=== PATIENT | male | born 1980 | race Caucasian/White ===

== ENCOUNTER → 2020-02-06 08:25 | Outpatient (BNVA) | payer MEDICARE, SELFPAY | PROVIDERS: Family Provider Nurse Practitioner Family; PCP Family Medicine; Visit Provider Nurse Practitioner | DX: F31.81 Bipolar II disorder (principal) | CPT/HCPCS: 99213 ==

== ENCOUNTER → 2020-08-03 08:09 | Outpatient (BNVA) | payer MEDICARE, SELFPAY | PROVIDERS: Family Provider Nurse Practitioner Family; PCP Family Medicine; Visit Provider Nurse Practitioner | DX: F31.81 Bipolar II disorder (principal) | CPT/HCPCS: 99214 ==

== ENCOUNTER → 2020-11-30 09:05 | Outpatient (BNVA) | payer MEDICARE, SELFPAY | PROVIDERS: Family Provider Nurse Practitioner Family; PCP Family Medicine; Visit Provider Nurse Practitioner | DX: F31.81 Bipolar II disorder (principal) | CPT/HCPCS: 99214 ==

== ENCOUNTER → 2021-03-22 15:16 | Outpatient (BNVA) | payer MEDICARE, SELFPAY | PROVIDERS: Family Provider Nurse Practitioner Family; PCP Family Medicine; Visit Provider Nurse Practitioner | DX: F31.81 Bipolar II disorder (principal) | CPT/HCPCS: 99214 ==

== ENCOUNTER → 2021-06-18 07:53 | Outpatient (BNVA) | payer MEDICARE, SELFPAY | PROVIDERS: Family Provider Nurse Practitioner Family; PCP Family Medicine; Visit Provider Nurse Practitioner | DX: F31.81 Bipolar II disorder (principal) | CPT/HCPCS: 99214 ==

== ENCOUNTER 2021-09-04 15:04 | Outpatient (CLI) | payer MEDICARE, SELFPAY ==
--- NOTE | 2021-09-04 15:00 | XR_ITS ---
WS: [id number] KUB, AP view, 09/04/2021 Clinical Data: KIDNEY STONE Comparison: KUB, 06/02/2019. Findings: There are bilateral renal calcifications which have increased in size and number in the last 2 years. The bladder is full, but no pelvic calcifications are seen. There is fecal material in the ascending and transverse colons. XR/XR KUB [id number] Impression: Increasing bilateral renal calcifications.
== END 2021-09-04 15:05 | disposition home or self-care (01) ==
LOC: RAD 15:08
PROVIDERS: PCP Family Medicine; Visit Provider Urology
DX: N20.0 Calculus of kidney (principal); Z20.822 Contact with and (suspected) exposure to COVID-19
CPT/HCPCS: 74018; 81003; 87635

== ENCOUNTER 2021-09-09 12:14 | Day surgery (SDC) | payer MEDICARE, SELFPAY ==
[2021-09-06 11:10] VITALS: BMI 31.4
--- NOTE | 2021-09-09 12:24 | XRR_ITS ---
PROCEDURE INFORMATION: Exam: XR Abdomen Exam date and time: 09/09/2021 12:24 PM Age: 41 years old Clinical indication: Screening exam; Other: Eswl preop; Prior surgery; Surgery type: Appy, hernia; Additional info: Preop left eswl TECHNIQUE: Imaging protocol: XR of the abdomen. Views: Frontal supine view of the abdomen. 1 View. COMPARISON: CR XR KUB [id number] 09/04/2021 3:33 PM FINDINGS: Gastrointestinal tract: Normal. No bowel dilation. Bones/joints: Osteoarthritis with sclerosis and joint space narrowing lumbar spine L4-L5 intervertebral disc space level. Multiple of calcified caliceal renal stones are seen. The largest are in the mid and lower pole of the left kidney measuring 17 mm x 15 mm, and 15 mm x 24 mm respectively. There is multiple smaller stones seen in the upper and lower pole collecting system of the left kidney. The right kidney shows multiple small stones in the upper mid and lower pole collecting system. The largest of the stones measures 7.7 mm. Review of prior examination showed a large stone in the central collecting system of the left kidney which is now been fragmented. XR/XR KUB [id number] IMPRESSION: 1. There are large caliceal stones in the lower pole collecting system of the left kidney. 2. Multiple small caliceal stones throughout the right renal collecting system. 3. Otherwise negative examination Radiation Dose CTDIVOL = (mGy): DLP = (mGy-cm)
[2021-09-09 13:02] VITALS: BP 138/98; PULSE 86; RESP 18; TEMP 36.6; O2SAT 97
[2021-09-09] MEDS: sodium chloride 0.9% 1,000 ML 30 ML IV (13:15)
--- NOTE | 2021-09-09 13:16 | P.HPUD_ITS ---
Surgery/Procedure H&P Update DATE OF PROCEDURE: September 09, 2021 DATE H&P PERFORMED: 09/04/21 H&P UPDATE INFORMATION: I have reviewed H&P completed within last 30 days, I have examined patient prior to procedure, No changes to prior documentation and H&P is in [facility] [place] [facility] EMR on date indicated PREOP DIAGNOSIS: Large Left renal stones x 2 PLANNED PROCEDURE: Operation Date: 09/09/21 13:30 Proposed Procedures p Cystoscopy 77442 40453 N20.0(Not Applicable) - Alex Batista MD s Ureteral Stent Placement(Left) - Alex Batista MD s ESWL(Not Applicable) - Alex Batista MD
--- NOTE | 2021-09-09 13:23 | ANES.PREANE2 ---
Pre-Anesthetic Assessment Pre-Anesthetic Assessment: Height/Weight: Height 1.88 m Weight 111.13 kg Temp Pulse Resp BP Pulse Ox 97.8 F 86 18 138/98 97 09/09/21 13:02 09/09/21 13:02 09/09/21 13:02 09/09/21 13:02 09/09/21 13:02 Preop Diagnosis: Large Left renal stones x 2 Proposed Procedure: Operation Date: 09/09/21 13:30 Proposed Procedures p Cystoscopy 81429 01631 N20.0(Not Applicable) - Alex Batista MD s Ureteral Stent Placement(Left) - Alex Batista MD s ESWL(Not Applicable) - Alex Batista MD Familial anesthetic complications: NOne Was Beta Abram taken within 24 hours: N/A Was Clonidine taken within 24 hours: N/A Last intake: Intake Last Liquid Date 09/09/21 Last Liquid Time 06:00 Last Solid Date 09/07/21 Last Solid Time 10:00 Social: Social History: Tobacco and No alcohol Exam: Pre-Anes Outpt Exam: alert, oriented x 3, clear to auscultation bilaterally and regular rate & rhythm Airway: Cervical ROM: WNL MP: 3 Dentition: Other (crowns) Pulmonary: Pulmonary: Sleep apnea CV/HEM: CV/HEM: HTN Comments: loop recorder still in place from several years ago - no issues found per patient GI: GI: GERD Neuropsych: Neuropsych: Bipolar Anesthetic Plan: ASA status: 3 Anesthesia: General Risk of > 500 ml blood loss (7ml/kg in children): No PFSH Anesthesia PFSH: Medical History (Updated 09/05/21 @ 07:07 by Alex Batista MD) Bipolar II disorder Fracture of ulnar shaft, closed S/P extracorporeal shock wave therapy Urolithiasis Surgical History (Updated 09/05/21 @ 07:07 by Alex Batista MD) History of back surgery History of inguinal hernia repair History of loop recorder Hx of appendectomy S/P ureteral stent placement Family History Father Heart attack Social History Smoking and tobacco status: current some day smoker Alcohol intake: current Alcohol intake frequency: holidays/special occasions only Marital status: Single Current occupational status: disabled History of recent travel: No Data Anesthesia Cardiac Studies: No Data to Display
[2021-09-09] MEDS: levofloxacin-dextrose 5 % 500 MG/100 ML PREMIX 100 MG IV (13:30)
--- NOTE | 2021-09-09 14:51 | P.OP_ITS ---
Operative Report Date of procedure: September 09, 2021 Pre-op Diagnosis: Large Left renal stones x 2 Post-op diagnosis: same Procedure Done: 1. Cystoscopy with left ureteral stent placement (7 Liberian by 30 cm double- pigtail without string) 2. Extracorporeal shockwave lithotripsy to the large UPJ stone. The other stone in the renal pelvis/lower pole was not treated. Implants: Left ureteral stent Specimens removed/disposition: None Pathology: None Surgeon: Lester Cash Posting Representative: Remedios Anesthesia: General Estimated blood loss: None Urine output: Not measured Complications: None Findings: Stent placed without difficulty. The larger more distal stone was treated with 2500 shocks with good change. The additional large stone was not treated. Condition: stable Disposition: PACU Brief History: Dionicio is a 41-year-old white male with a complex history of stone disease r equiring multiple procedures over the years. Recently presented after a long absence with 2 large stones on the left side with the more distal stone engaged at the UPJ and the more proximal stone in the lower pole and renal pelvis [id number]. On that same day he spontaneously passed 2 ureteral calculi. In the past his stones have broken up well with ESWL and is admitted now for initial treatment most likely just 1 stone given the size and density. Procedure: After routine preoperative evaluation examination and obtaining of informed consent he was taken to the operating suite on 09/09/2021 where general anesthesia was administered without difficulty after appropriate timeout was performed, SCDs confirmed to be functioning, preoperative antibiotics administered, beta-saravanan protocol confirmed. Position on the Dornier unit in dorsolithotomy position with the shock head initially positioned posteriorly. Careful attention was paid to avoiding pressure points. Prepped and draped in usual sterile fashion. 21 Liberian cystoscope with 30 degree lens was introduced into the urethral meatus and advanced into the bladder under videoscopy. Flexible tip guidewire was easily advanced up the left ureter bypassing the stone and the stone was pushed into the renal pelvis slightly. A 7 Liberian by 30 cm double-pigtail stent was advanced over the guidewire through the cystoscope into appropriate position as confirmed via fluoroscopy and cystoscopy. The bladder was drained and the cystoscopic portion of the procedure was completed. He was then positioned in supine position with the shock head position posteriorly in the UPJ stone was focused upon. A total of 2500 shocks was administered to the stone with good change. The second stone was not treated at all directly based on the size of the stone and requirement for fragmentation of the treated stone. He was awakened in the operating room and returned to the recovery room in stable condition. PLANS: 1. Anticipate discharge from outpatient surgery today with follow-up in approximately 2 weeks with KUB. It is very likely that he will require more treatment to even the stone but certainly full treatment to the additional untreated stone.
[2021-09-09 14:59] VITALS: BP 146/97; PULSE 85; RESP 16; TEMP 36.5; O2SAT 98
[2021-09-09 15:00] VITALS: BP 152/97; PULSE 94; RESP 25; O2SAT 100
[2021-09-09 15:05] VITALS: BP 149/106; PULSE 80; RESP 17; O2SAT 100
--- NOTE | 2021-09-09 15:05 | ANE.PACU2 ---
Inpatient post-anesthesia follow up: Airway intact: Yes Vital signs: Temperature 97.8 F Pulse Rate 86 Respiratory Rate 18 Blood Pressure 138/98 Pulse Oximetry 97 Oxygen Delivery Me thod Room Air Oxygen Flow Rate Fraction of Inspir ed Oxygen Hydration adequate: Yes Nausea and vomiting: No Pain level: 1 Mental status: Baseline
[2021-09-09 15:12] VITALS: BP 135/96; PULSE 79; RESP 17; TEMP 36.5; O2SAT 96
[2021-09-09 15:27] VITALS: BP 145/91; PULSE 88; RESP 18; TEMP 36.6; O2SAT 96
[2021-09-09] MEDS: oxyCODONE-APAP 5-325 mg Tablet 1 TAB PO (15:46)
== END 2021-09-09 16:15 | disposition home or self-care (01) ==
PROVIDERS: PCP Family Medicine; Visit Provider Urology
PROC: 0TJB8ZZ Inspection of Bladder, Via Natural or Artificial Opening Endoscopic (ICD-10-PCS; CPT 52000; principal; 2021-09-09 13:20)
PROC: (CPT 50605; 2021-09-09 13:20)
PROC: (CPT 50590; 2021-09-09 13:20)
DX: N20.1 Calculus of ureter (principal); N20.9 Urinary calculus, unspecified; Z90.89 Acquired absence of other organs
CPT/HCPCS: 50590; 52332; 74018; C2625; J1100; J1956; J2405; J2704; J3010; J3490; J7030

== ENCOUNTER 2021-09-17 07:03 | Outpatient (CLI) | payer MEDICARE, SELFPAY ==
--- NOTE | 2021-09-17 07:00 | XR_ITS ---
WS: [id number] Exam: XR KUB [id number] Date/Time of Exam: 09/17/2021 7:17 AM Reason For Exam: UROLITHIASIS Comparison 09/09/2021. A left-sided ureteral stent catheter is in place in satisfactory location. There are numerous calcifi cations identified along the upper course of the catheter apparently representing ureteral stones. Th ere are also multiple stones superimposing both renal silhouettes. No bowel obstruction or free air. No sign of organ enlargement. Degenerative change of the lower lumbar spine. XR/XR KUB [id number] IMPRESSION: 1. Left-sided ureteral stent catheter in satisfactory location. There are numer ous calcifications noted along the superior extent of the catheter apparently r epresenting multiple ureteral stones. Additional stones superimpose both kidney s.
== END 2021-09-17 07:04 | disposition home or self-care (01) ==
LOC: RAD 07:04
PROVIDERS: PCP Family Medicine; Visit Provider Urology
DX: N20.9 Urinary calculus, unspecified (principal); Z20.822 Contact with and (suspected) exposure to COVID-19; Z96.0 Presence of urogenital implants
CPT/HCPCS: 74018; 81003; 87635

== ENCOUNTER 2021-09-23 10:34 | Day surgery (SDC) | payer MEDICARE, SELFPAY ==
[2021-09-20 17:39] VITALS: BMI 30.8
--- NOTE | 2021-09-23 10:39 | XR_ITS ---
WS: [id number] ABDOMEN 1 VIEW(S) HISTORY: Preop left ESWL COMPARISON: 09/17/2021 Normal bowel gas pattern. Double pigtail LEFT ureteral stent remains in good position. There are numerous calcifications noted along the course of the LEFT ureteral stent. The largest burden measures 4.6 cm in length and is late ral to the L3 and L4 vertebral bodies. There are additional smaller calcifications in the mid to dist al LEFT ureter. Moderate calcific burden remaining within the LEFT renal pelvis. There are numerous calcifications in the mid to lower RIGHT renal pelvis. No ureteral calcifications on the RIGHT. No bone abnormality. XR/XR KUB [id number] IMPRESSION: 1. Status post LEFT double pigtail ureteral stent insertion. 2. There is extensive calcific burden within the LEFT renal pelvis and along t he course of the LEFT renal stent as above.
[2021-09-23 11:25] VITALS: BP 138/105; PULSE 91; RESP 18; TEMP 36.4; O2SAT 95
[2021-09-23] MEDS: sodium chloride 0.9% 1,000 ML 30 ML IV (11:40)
--- NOTE | 2021-09-23 11:43 | ANES.PREANE2 ---
Pre-Anesthetic Assessment Pre-Anesthetic Assessment: Height/Weight: Height 1.88 m Weight 108.862 kg Temp Pulse Resp BP Pulse Ox 97.6 F 91 18 138/105 95 09/23/21 11:25 09/23/21 11:25 09/23/21 11:25 09/23/21 11:25 09/23/21 11:25 Preop Diagnosis: Residual left renal/ureteral calculi Proposed Procedure: Operation Date: 09/23/21 12:00 Proposed Procedures p ESWL, cystoscopy, stent 18212 N20.9(Left) - Alex Batista MD Was Beta Abram taken within 24 hours: Yes Last intake: Intake Last Liquid Date 09/21/21 Last Liquid Time 23:30 Last Solid Date 09/21/21 Last Solid Time 12:00 Social: Social History: Alcohol and Tobacco Comment: smokes cigs occas Exam: Pre-Anes Outpt Exam: alert, oriented x 3, clear to auscultation bilaterally and regular rate & rhythm Airway: Submandibular: WNL Cervical ROM: WNL MP: 2 Dentition: Full History/ROS: No significant history except as noted and No significant complaints Pulmonary: Pulmonary: None reported CV/HEM: CV/HEM: HTN Comments: Hx SVT. none in last 2 years : Comments: Hx stones Hepatic: Hepatic: None reported GI: GI: None reported Metabolic: Metabolic: None reported Musc/skel: Musc/skel: None reported Neuropsych: Neuropsych: None reported Anesthetic Plan: ASA status: 2 Anesthesia: Anesthesia Evaluation and General Risk of > 500 ml blood loss (7ml/kg in children): No PFSH Anesthesia PFSH: Medical History Bipolar II disorder Fracture of ulnar shaft, closed S/P extracorporeal shock wave therapy Urolithiasis Surgical History History of back surgery History of inguinal hernia repair History of loop recorder Hx of appendectomy S/P ureteral stent placement Family History Father Heart attack Social History Alcohol intake: current Alcohol intake frequency: holidays/special occasions only Marital status: Single Current occupational status: disabled History of recent travel: No Data Anesthesia Cardiac Studies: No Data to Display
--- NOTE | 2021-09-23 12:02 | P.OP_ITS ---
Operative Report Date of procedure: September 23, 2021 Pre-op Diagnosis: Residual left renal/ureteral calculi Post-op diagnosis: same Procedure Done: LEFT: Extracorporeal shockwave lithotripsy ureteral and renal calculi Pathology: none sent Surgeon: Lester Integration Developer: Remedios lithotripsy sterilization technician Anesthesia: General Urine output: Not measured Complications: None Findings: 2 distinct areas of stones along the stent: Sacral and proximal ureter. Total of 3000 shocks administered to these 2 areas divided roughly evenly LLP and 1 moderate-sized fragment treated in the kidney (2500 shocks) Good change on all treated stones. Condition: stable Disposition: PACU Brief History: Dionicio is a very pleasant 41-year-old white male with a prolific stone formation history and recently discovered after a prolonged absence to have 2 very large stones in the left collecting system. We reviewed percutaneous approaches versus endoscopic approaches from retrograde perspective versus ESWL and he chose ESWL given his prior history of good response. He is undergone 1 treatment so far with significant fragmentation of the larger UPJ stone and partial fragmentation of the more proximal stone. The proximal stone was not fully targeted but apparently was in the shockwave path enough to create breaking of the lower portion of the stone. He has a lot of fragments in the left proximal ureteral clearly too large to pass and elected retreatment. Preop KUB today showed some of the fragments had moved down into the distal ureter over the sacrum and he had some substantial fragments still remaining in the proximal ureter. Plan was to treat the ureteral stones first and if shockwave volume was still available then start working on the renal side. Procedure: After routine preoperative evaluation examination and obtaining of informed consent he was taken to the operating suite on 09/23/2021 where general anesthesia was administered without difficulty after appropriate timeout was performed, SCDs confirmed to be functioning, preoperative antibiotics administered, beta-saravanan protocol confirmed. Positioned on the Dornier unit in supine position paying careful attention to avoiding pressure points. Initial therapy was planned for the more distal collection of ureteral stones along the stent. Shock head was positioned anteriorly and these were brought into focus. A total of approximately 1500 shocks were administered to this string of stones over the sacrum with good change of all. The shock head was then repositioned such that the focal point was located on the proximal ureter below the edge of the kidney and the string of stones some of them approximately 12 to 15 mm in size were treated with an additional 1500 shocks with good change in all. Focus was then redirected to the second largest fragment in the left lower pole area and then directed to a cluster of stone fragments in the left lower pole below the larger remaining fragment. A total of 2500 shocks were administered to the renal stones. Tolerated the procedure well without complication. Good change was noted to all areas treated. Awakened in the operating room and returned to the recovery room in stable condition. PLANS: 1. Anticipate discharge from outpatient surgery 2. Follow-up in approximately 2 weeks with KUB first.
--- NOTE | 2021-09-23 12:02 | W.PM.OPSUD ---
Surgery/Procedure H&P Update DATE OF PROCEDURE: September 23, 2021 DATE H&P PERFORMED: 09/17/21 H&P UPDATE INFORMATION: I have reviewed H&P completed within last 30 days, I have examined patient prior to procedure, No changes to prior documentation and H&P is in [facility] [place] EMR on date indicated PREOP DIAGNOSIS: Residual left renal/ureteral calculi PLANNED PROCEDURE: Operation Date: 09/23/21 12:00 Proposed Procedures p ESWL, cystoscopy, stent 46908 N20.9(Left) - Alex Batista MD
[2021-09-23] MEDS: levofloxacin-dextrose 5 % 500 MG/100 ML PREMIX 100 MG IV (12:06)
[2021-09-23 14:24] VITALS: BP 156/127; PULSE 96; RESP 18; TEMP 36.3; O2SAT 96
[2021-09-23 14:25] VITALS: BP 163/111; PULSE 100; RESP 22; O2SAT 99
[2021-09-23 14:30] VITALS: BP 165/115; PULSE 70; RESP 24; O2SAT 100
[2021-09-23 14:34] VITALS: BP 147/101; PULSE 70; RESP 20; O2SAT 100
[2021-09-23 14:35] VITALS: BP 145/100; PULSE 78; RESP 17; O2SAT 96
--- NOTE | 2021-09-23 14:55 | ANE.PACU2 ---
Inpatient post-anesthesia follow up: Airway intact: Yes Vital signs: Temperature 97.4 F Pulse Rate 78 Respiratory Rate 17 Blood Pressure 145/100 Pulse Oximetry 96 Oxygen Delivery Me thod Room Air Oxygen Flow Rate 8 Fraction of Inspir ed Oxygen Hydration adequate: Yes Nausea and vomiting: No Pain level: 2 Mental status: Baseline
[2021-09-23] MEDS: ondansetron 2 mg/ML SDV 2 mL 4 MG IVP (15:13)
[2021-09-23] MEDS: oxyCODONE-APAP 5-325 mg Tablet 1 TAB PO (15:30)
== END 2021-09-23 15:40 | disposition home or self-care (01) ==
PROVIDERS: PCP Family Medicine; Visit Provider Urology
PROC: (CPT 50590; principal; 2021-09-23 12:00)
DX: N20.9 Urinary calculus, unspecified (principal); N20.0 Calculus of kidney; Z90.89 Acquired absence of other organs
CPT/HCPCS: 50590; 74018; J1100; J1956; J2405; J2704; J2710; J3010; J3490; J7030

== ENCOUNTER 2021-10-11 08:14 | Outpatient (CLI) | payer MEDICARE, SELFPAY ==
--- NOTE | 2021-10-11 08:00 | XR_ITS ---
WS: [id number] Exam: XR KUB [id number] Date/Time of Exam: 10/11/2021 8:00 AM Reason For Exam: UROLITHIASIS Comparison 09/23/2021. A left-sided ureteral catheter is in place appearing be in satisfactory position. There are numerous stone fragments adjacent to the lower end of the catheter in the distal ureter. A very large stone is adjacent to the catheter in the region of the left renal pelvis. This measures slightly less than 2 cm at greatest dimension. Additional small stones are noted in the left kidney as well as the right k idney. No bowel obstruction or free air. No sign of organ enlargement. Degenerative change at the L4- 5 level. XR/XR KUB [id number] IMPRESSION: 1. Numerous tiny stone fragments identified along the lower end of an indwellin g left ureteral catheter apparently within the distal left ureter. There is als o a large stone adjacent to the catheter in the expected region of the left nelson al pelvis. This measures almost 2 cm at greatest dimension. 2. There are additional stones in both kidneys.
== END 2021-10-11 08:15 | disposition home or self-care (01) ==
LOC: RAD 08:16
PROVIDERS: PCP Family Medicine; Visit Provider Urology
DX: N20.0 Calculus of kidney (principal)
CPT/HCPCS: 74018; 81003

== ENCOUNTER → 2021-10-17 13:22 | Outpatient (BNVA) | payer MEDICARE, SELFPAY | PROVIDERS: PCP Family Medicine; Visit Provider Nurse Practitioner Family | DX: N20.9 Urinary calculus, unspecified (principal) | CPT/HCPCS: 87635 ==

== ENCOUNTER → 2021-10-18 13:29 | Outpatient (BNVA) | payer MEDICARE, SELFPAY | PROVIDERS: PCP Family Medicine; Visit Provider Nurse Practitioner | DX: F31.81 Bipolar II disorder (principal) | CPT/HCPCS: 99214 ==

== ENCOUNTER 2021-10-21 10:42 | Day surgery (SDC) | payer MEDICARE, SELFPAY ==
[2021-10-18 13:52] VITALS: BMI 31.3
[2021-10-21] VITALS (11 sets, daily range): BP systolic 144–170; BP diastolic 98–113; PULSE 62–89; RESP 11–23; TEMP 36.2–36.4; O2SAT 96–100
--- NOTE | 2021-10-21 10:44 | XR_ITS ---
WS: [id number] Exam: XR KUB [id number] Date/Time of Exam: 10/21/2021 10:47 AM Reason For Exam: Preop left ESWL Comparison 10/11/2021. A left-sided ureteral stent is noted and appears to be in satisfactory position. A 2 cm calcification is seen along the proximal lateral margin of the stent and probably represents a large stone near th e ureteropelvic junction or in the upper ureter. There are additional calcifications seen along the i nferior course of the catheter near the region of the distal ureter and likely represent retained ure teral stones. Numerous calcifications are also noted in both kidneys representing known multiple cassie l calculi. No bowel obstruction or free air. No sign of organ enlargement. Degenerative and postopera tive changes of the lower lumbar spine. XR/XR KUB [id number] IMPRESSION: 1. Calcifications seen along the distal left ureteral catheter apparently repre senting a retained stones in the distal left ureter. 2. Large 2 cm calcification seen along the proximal aspect of the ureteral cath eter on the left and probably represents a large stone near the ureteropelvic j unction. 3. Multiple calcifications superimpose the kidneys and apparently represent mul tiple known renal calculi.
[2021-10-21] MEDS: sodium chloride 0.9% 1,000 ML 30 ML IV (11:40)
--- NOTE | 2021-10-21 12:14 | P.HPUD_ITS ---
Surgery/Procedure H&P Update DATE OF PROCEDURE: October 21, 2021 DATE H&P PERFORMED: 10/11/21 H&P UPDATE INFORMATION: I have reviewed H&P completed within last 30 days, I have examined patient prior to procedure, No changes to prior documentation and H&P is in [facility] [place] EMR on date indicated PREOP DIAGNOSIS: Residual left ureteral and renal calculi PLANNED PROCEDURE: Operation Date: 10/21/21 12:00 Proposed Procedures p Cystoscopy 18137 51418 N20.9(Not Applicable) - Alex Batista MD s Ureteral Stent Exchange(Left) - Alex Batista MD s ESWL(Not Applicable) - Alex Batista MD
--- NOTE | 2021-10-21 12:16 | ANES.PREANE2 ---
Pre-Anesthetic Assessment Pre-Anesthetic Assessment: Height/Weight: Height 1.88 m Weight 110.677 kg Temp Pulse Resp BP Pulse Ox 97.5 F L 72 18 144/98 97 10/21/21 11:11 10/21/21 11:11 10/21/21 11:11 10/21/21 11:11 10/21/21 11:11 Preop Diagnosis: Residual left ureteral and renal calculi Proposed Procedure: Operation Date: 10/21/21 12:00 Proposed Procedures p Cystoscopy 62402 02862 N20.9(Not Applicable) - Alex Batista MD s Ureteral Stent Exchange(Left) - Alex Batista MD s ESWL(Not Applicable) - Alex Batista MD Last intake: Intake Last Liquid Date 10/21/21 Last Liquid Time 07:00 Last Solid Date 10/19/21 Last Solid Time 20:00 Social: Social History: Tobacco Exam: Pre-Anes Outpt Exam: alert, oriented x 3 and clear to auscultation bilaterally Airway: Submandibular: WNL Cervical ROM: WNL MP: 2 Dentition: Full History/ROS: No significant history except as noted Pulmonary: Pulmonary: None reported CV/HEM: CV/HEM: HTN Comments: history of SVT : : None reported Hepatic: Hepatic: None reported GI: GI: GERD Metabolic: Metabolic: Morbid obesity Musc/skel: Musc/skel: None reported Neuropsych: Neuropsych: Bipolar Anesthetic Plan: ASA status: 3 Anesthesia: General Risk of > 500 ml blood loss (7ml/kg in children): No Other Pertinent Information: loop recorder in place for 2 years placed for episodes of blacking out last episode 2 months prior. PFSH Anesthesia PFSH: Medical History Bipolar II disorder Fracture of ulnar shaft, closed S/P extracorporeal shock wave therapy Urolithiasis Surgical History History of back surgery History of inguinal hernia repair History of loop recorder Hx of appendectomy S/P ureteral stent placement Family History Father Heart attack Social History Alcohol intake: current Alcohol intake frequency: holidays/special occasions only Marital status: Single Current occupational status: disabled History of recent travel: No Data Anesthesia Cardiac Studies: No Data to Display
[2021-10-21] MEDS: levofloxacin-dextrose 5 % 500 MG/100 ML PREMIX 100 MG IV (12:23)
--- NOTE | 2021-10-21 13:58 | P.OP_ITS ---
Operative Report Date of procedure: October 21, 2021 Pre-op Diagnosis: Residual left ureteral and renal calculi Post-op diagnosis: same Post-op Findings: Treatment of left distal ureteral stone residual fragments with good change Treatment of the largest remaining fragment at the left UPJ without as much obvious change. Procedure Done: 1. Extracorporeal shockwave lithotripsy to ureteral and renal calculi 2. Cystoscopy exchange left ureteral stent (7 Estonian by 30 cm double-pigtail without string) Pathology: none sent Surgeon: Lester Anesthesia: General Urine output: Not measured Complications: None Findings: 1. 1000 shocks to the left distal ureteral stones with good change 2. 3000 shocks to the left renal calculus with less obvious change. Condition: stable Disposition: PACU Brief History: Dionicio is a very pleasant 41-year-old white male with very complex history of stone disease who had 2 large stones in his renal pelvis. Was offered nephrostolithotomy as the general standard treatment for large stones versus attempted ESWL. He chose the latter. He does have a history of stones breaking up very well. He has been treated twice in past probably about 95% of the smaller fragments that were created. He still has one large fragment that has not been directly created but did break up with collateral shockwaves to the other large stone. He had a stent placed for this first treatment. He is back now for repeat treatment to the large stone, distal ureteral stone fragments and stent change. Procedure: After routine preoperative evaluation examination and obtaining of informed c onsent he was taken to the operating suite on 10/21/2021 where general anesthesia was administered without difficulty after appropriate timeout was performed, SCDs confirmed to be functioning, preoperative antibiotics administered, beta-saravanan protocol confirmed. Positioned on the Dornier unit in supine position with the shock and positioned anteriorly and focal point placed on the distal ureteral stones. A total of thousand shocks were then administered moving up and down the chain of stones. They did appear to be significantly impacted. Focus was then shifted to the large stone remaining at the UPJ. A total of 3000 shocks was administered to this with 2000 with the shock head position anteriorly and remaining 1000 shocks positioned posteriorly. Real-time fluoroscopy was utilized for position changes as needed. Of note after about 300 shocks administered to the UPJ stone a several minute pause was conducted. Intensity was begun at 1 advanced to 4. Rate was 70 throughout. He was then repositioned in dorsolithotomy position paying careful attention to avoiding pressure points. A flexible tip guidewire was advanced up the left ureter next to the stent and easily into the upper pole calyx. The stent was then grasped with grasping forceps and withdrawn paying careful attention to maintaining the wire in the appropriate position. Cystoscope was then rebackloaded over the guidewire and a 7 Estonian by 30 cm double-pigtail stent was advanced over the guidewire through the cystoscope into appropriate position as confirmed via fluoroscopy cystoscopy. Bladder was drained and the procedure was completed. He tolerated procedure well without complications and was awakened in the operating room and returned to the recovery room in stable condition. Plans: 1. Dissipate discharge from outpatient surgery 2. Follow-up in 2 weeks with KUB 3. Given the lack of dramatic change to the UPJ stone I expect that he will require an additional treatment either with ESWL or endoscopy.
--- NOTE | 2021-10-21 14:27 | SUR.PHASEI ---
14:08 RECEIVED PT FROM OR TEAM.PATIENT SLEEPY BUT RESPONDS TO VERBAL. GOOD VENTILATION WITH OCCASIONAL SNORING.PATIENT ON SIMPLE FACE MASK AT 8L/M. DENIES NAUSEA WHEN ASKED.NSR ON MONITOR.
--- NOTE | 2021-10-21 14:36 | SUR.PHASEI ---
WARM BLANKETS APPLIED.AIRWAY PATENT RESTING WITH EYES CLOSED. VENTILATING WELL.
--- NOTE | 2021-10-21 14:59 | SUR.PHASEI ---
14:50 TRANSFERRED TO PHASE II OUTPATIENT .REPORT TO TAE.
== END 2021-10-21 15:41 | disposition home or self-care (01) ==
PROVIDERS: PCP Family Medicine; Visit Provider Urology
PROC: 0TJB8ZZ Inspection of Bladder, Via Natural or Artificial Opening Endoscopic (ICD-10-PCS; CPT 52000; principal; 2021-10-21 12:00)
PROC: (CPT 50590; 2021-10-21 12:00)
PROC: (CPT 50590; 2021-10-21 12:00)
DX: N20.2 Calculus of kidney with calculus of ureter (principal); I10 Essential (primary) hypertension; K21.9 Gastro-esophageal reflux disease without esophagitis; E66.01 Morbid (severe) obesity due to excess calories; Z68.31 Body mass index [BMI] 31.0-31.9, adult
CPT/HCPCS: 50590; 52332; 74018; 96365; C2625; J1956; J2250; J2704; J3010; J3490; J7030

== ENCOUNTER 2021-11-05 14:56 | Outpatient (CLI) | payer MEDICARE, SELFPAY ==
--- NOTE | 2021-11-05 15:04 | XR_ITS ---
WS: [id number] KUB, AP view, 11/05/2021 Clinical Data: UROLITHIASIS Comparison: KUB, 10/21/2021. Findings: The 1.8 cm calcification which was adjacent to the proximal left ureteral stent has fragmented and th ere are multiple calcifications extending from L3 to L4 adjacent to the ureteral stent. There are sti ll multiple fragments adjacent to the distal left ureteral stent. There are calcifications overlying the right kidney. The left ureteral stent remains in the same position. XR/XR KUB [id number] Impression: 1. Fragmentation of large proximal left ureteral calculus in the multiple small er fragments adjacent to left ureteral stent. 2. No change in distal fragments adjacent to left ureteral stent and multiple r ight renal calculi.
== END 2021-11-05 14:57 | disposition home or self-care (01) ==
PROVIDERS: PCP Family Medicine; Visit Provider Urology
DX: N20.9 Urinary calculus, unspecified (principal); Z96.0 Presence of urogenital implants; Z20.822 Contact with and (suspected) exposure to COVID-19
CPT/HCPCS: 74018; 81003; 87635

== ENCOUNTER 2021-11-11 06:38 | Day surgery (SDC) | payer MEDICARE, SELFPAY ==
[2021-11-08 12:24] VITALS: BMI 30.8
[2021-11-11] VITALS (9 sets, daily range): BP systolic 120–155; BP diastolic 00–106; PULSE 72–102; RESP 16–18; TEMP 36.4–36.8; O2SAT 91–96
--- NOTE | 2021-11-11 06:46 | XR_ITS ---
WS: [id number] XR KUB [id number] REASON FOR EXAM: Left ureteral stone fragments, preop ESWL FINDINGS: Multiple calculi overlying the lower pole of the right kidney are unchanged compared to 11/05/2021. Left ureteral stent remains in position unchanged . Small remnant calculi in the left kidney unchanged compared to 11/05/2021. Multiple calculi adjacent to the left ureteral stent from L3 to L4 are unchanged in position compared to 11/05/2021. The calculus fragments along the distal left ureteral stent seen on 11/05/2021 are no longer identifiab le. XR/XR KUB [id number] IMPRESSION: Bilateral renal and ureteral calculi with left ureteral stent as above.
[2021-11-11] MEDS: sodium chloride 0.9% 1,000 ML 30 ML IV (07:19)
--- NOTE | 2021-11-11 07:32 | ANES.PREANE2 ---
Pre-Anesthetic Assessment Pre-Anesthetic Assessment: Height/Weight: Height 1.88 m Weight 108.862 kg Temp Pulse Resp BP Pulse Ox 97.6 F 102 H 18 155/106 96 11/11/21 07:07 11/11/21 07:07 11/11/21 07:07 11/11/21 07:07 11/11/21 07:07 Preop Diagnosis: LEFT: ureteral calculi fragments following multiple ESWL's large renal sto Proposed Procedure: Operation Date: 11/11/21 08:15 Proposed Procedures p ESWL 40630 N20.9(Left) - Alex Batista MD Familial anesthetic complications: none Was Beta Abram taken within 24 hours: Yes Was Clonidine taken within 24 hours: N/A Last intake: Intake Last Liquid Date 11/10/21 Last Liquid Time 21:00 Last Solid Date 11/09/21 Last Solid Time 21:00 Social: Social History: No alcohol and No tobacco Exam: Pre-Anes Outpt Exam: alert, oriented x 3, clear to auscultation bilaterally and regular rate & rhythm Airway: Cervical ROM: WNL MP: 3 Dentition: Other (crowns) CV/HEM: CV/HEM: HTN GI: GI: GERD Neuropsych: Neuropsych: Bipolar Anesthetic Plan: ASA status: 2 Anesthesia: General Risk of > 500 ml blood loss (7ml/kg in children): No Meds/Allergies Current Medications: Current Medications Generic Name Dose Route Start Last Admin Trade Name Freq PRN Reason Stop Dose Admin Sodium Chloride 1,000 mls @ 30 ml s/hr 11/11/21 07:00 11/11/21 07:19 Sodium Chloride 0.9% IV 11/12/21 06:59 30 mls/hr .Q24H MAGDALENO Administration PFSH Anesthesia PFSH: Medical History Bipolar II disorder Fracture of ulnar shaft, closed S/P extracorporeal shock wave therapy Urolithiasis Surgical History History of back surgery History of inguinal hernia repair History of loop recorder Hx of appendectomy S/P ureteral stent placement Family History Father Heart attack Social History Alcohol intake: current Alcohol intake frequency: holidays/special occasions only Marital status: Single Current occupational status: disabled History of recent travel: No Data Anesthesia Cardiac Studies: No Data to Display
--- NOTE | 2021-11-11 08:19 | P.HPUD_ITS ---
Surgery/Procedure H&P Update DATE OF PROCEDURE: November 11, 2021 DATE H&P PERFORMED: 11/05/21 H&P UPDATE INFORMATION: I have reviewed H&P completed within last 30 days, I have examined patient prior to procedure, No changes to prior documentation and H&P is in [facility] on date indicated CHANGES TO PREVIOUS DOCUMENTATION: He is passed a few of the more distally located stones from the previous x-ray. Everything else looks pretty much about the same. PREOP DIAGNOSIS: LEFT: ureteral calculi fragments following multiple ESWL's large renal sto PLANNED PROCEDURE: Operation Date: 11/11/21 08:15 Proposed Procedures p ESWL 15606 N20.9(Left) - Alex Batista MD
[2021-11-11 08:20] LABS: Blood Urea Nitrogen 12 mg/dL (6-20); Calcium 8.7 mg/dL (8.5-10.5); Carbon Dioxide 24 mmol/L (22-29); Chloride 99 mmol/L (98-107); Glomerular Filtration Rate 107.6 mL/min (90-130); Glucose 99 mg/dL (65-115); Osmolality Calculated 284 mOsm/kg (285-295); Sodium 137 mmol/L (136-145)
--- NOTE | 2021-11-11 08:27 | PM.OP ---
Operative Report Date of procedure: November 11, 2021 Pre-op Diagnosis: LEFT:ureteral stone fragments post 3 ESWLs to 2 large renal stones Post-op diagnosis: same Procedure Done: 1. Extracorporeal shockwave lithotripsy to multiple left ureteral stone fragments Pathology: none sent Surgeon: Lester Analytical Laboratory Technician: Remedios Anesthesia: General Urine output: Not measured Complications: None Findings: 3000 shocks administered to the multiple fragments located along the proximal to mid ureter on the left. Good change noted to all the stones treated. Condition: stable Disposition: PACU Brief History: Dionicio is a very pleasant 41-year-old white male with complicated stone history who was recently discovered to have 2 large dense stones in the left renal pelvis. He was offered percutaneous nephrostolithotomy, retrograde endoscopic laser lithotripsy, ESWL and/or combination of all. He elected ESWL. He has been treated 3 times with dramatic change each time and the stone burden with passage of all but may be 10% of the original burden. He has a string of stones stretching from the proximal ureter to the mid ureter and since his last office visit has passed several stones from the distal ureter. The largest fragment is the trailing fragment. He is back now for hopefully his last treatment to clear the stones. He had gone a long time without any medical treatment (potassium citrate) and during that interval formed multiple bilateral large stones Procedure: After routine preoperative evaluation examination and obtaining informed consent he was taken to the operating suite on 11/11/2021 where general anesthesia was administered without difficulty after appropriate timeout was performed, SCDs confirmed to be functioning, preoperative antibiotics administered, beta-saravanan protocol confirmed. Position on the Dornier unit in supine position paying careful attention to avoiding pressure points. Shock head was positioned anteriorly. Shockwave therapy was begun at the larger fragment located more proximally. Focus was good. The stack of stones was treated with movement up and down the chain as change was noted. A total of 3000 shocks were administered. With ultimately good response. The stent was left indwelling was not modified Tolerated procedure well without complications and was awakened in the operating room and returned to the recovery room in stable condition. PLANS: 1. Anticipate discharge from outpatient surgery 2. Follow-up in 7 to 10 days for KUB possible cystoscopy stent removal.
[2021-11-11] MEDS: levofloxacin-dextrose 5 % 500 MG/100 ML PREMIX 100 MG IV (08:33)
--- NOTE | 2021-11-11 09:50 | P.PCN_ITS ---
PACU note PACU note: VSS, Good respiratory effort, report to BULK PICKER Post-Anesthesia Exam: awake
--- NOTE | 2021-11-11 09:50 | PM.PACU ---
PACU note PACU note: VSS, Good respiratory effort, report to AIR QUALITY ENGINEER Post-Anesthesia Exam: awake
--- NOTE | 2021-11-11 14:05 | ANE.PACU2 ---
Inpatient post-anesthesia follow up: Airway intact: Yes Vital signs: Temperature 98.2 F Pulse Rate 95 Respiratory Rate 18 Blood Pressure 129/98 Pulse Oximetry 92 Oxygen Delivery Me thod Room Air Oxygen Flow Rate Fraction of Inspir ed Oxygen Hydration adequate: Yes Nausea and vomiting: No Pain level: 2 Mental status: Baseline
== END 2021-11-11 10:48 | disposition home or self-care (01) ==
PROVIDERS: Anesthesiology; PCP Family Medicine; Visit Provider Urology
PROC: (CPT 50590; principal; 2021-11-11 08:10)
DX: N20.2 Calculus of kidney with calculus of ureter (principal); I10 Essential (primary) hypertension; K21.9 Gastro-esophageal reflux disease without esophagitis
CPT/HCPCS: 50590; 36415; 74018; 80048; J0330; J1100; J1956; J2405; J2704; J3010; J3490; J7030

== ENCOUNTER 2021-11-29 11:10 | Outpatient (CLI) | payer MEDICARE, SELFPAY ==
--- NOTE | 2021-11-29 | XRR_ITS ---
PROCEDURE INFORMATION: Exam: XR Abdomen Exam date and time: 11/29/2021 12:05 PM Age: 41 years old Clinical indication: Condition urolithiasis. Stent in left kidney. Mild discomfort. TECHNIQUE: Imaging protocol: XR of the abdomen. Views: Frontal supine view of the abdomen. 1 View. COMPARISON: CR XR KUB [id number] 11/11/2021 6:50 AM FINDINGS: Tubes, catheters and devices: A left ureteral stent is noted. There are multiple stones in the mid left ureter adjacent to the ureteral stent, and a few of the stones of migrated adjacent to the distal ureteral stent. Renal stones are seen bilaterally. Gastrointestinal tract: Nonobstructive bowel gas pattern. Intraperitoneal space: No gross free air. Organs: Probable hepatomegaly. Bones/joints: No acute fracture is identified. Possible lucent lesion in the left iliac bone/acetabulum. XR/XR KUB [id number] IMPRESSION: 1. A left ureteral stent is noted. There are multiple stones in the mid left ureter adjacent to the ureteral stent, and a few of the stones of migrated adjacent to the distal ureteral stent. Renal stones are seen bilaterally. 2. Possible lucent lesion in the left iliac bone/acetabulum. Recommend CT pelvis to better characterize. 3. Probable hepatomegaly.
== END 2021-11-29 11:11 | disposition home or self-care (01) ==
LOC: RAD 11:26
PROVIDERS: PCP Family Medicine; Visit Provider Urology
DX: N20.9 Urinary calculus, unspecified (principal); Z96.0 Presence of urogenital implants
CPT/HCPCS: 74018; 81003

== ENCOUNTER → 2021-12-04 09:49 | Outpatient (BNVA) | payer MEDICARE, SELFPAY | PROVIDERS: PCP Family Medicine; Visit Provider Nurse Practitioner Family | DX: N20.9 Urinary calculus, unspecified (principal) | CPT/HCPCS: 87635 ==

== ENCOUNTER → 2021-12-16 12:54 | Outpatient (BNVA) | payer MEDICARE, SELFPAY | PROVIDERS: PCP Family Medicine; Visit Provider Urology | DX: N20.9 Urinary calculus, unspecified (principal) | CPT/HCPCS: 87635 ==

== ENCOUNTER 2021-12-18 06:38 | Day surgery (SDC) | payer MEDICARE, SELFPAY ==
[2021-12-17 11:43] VITALS: BMI 31.1
[2021-12-18] VITALS (10 sets, daily range): BP systolic 135–162; BP diastolic 72–116; PULSE 74–99; RESP 16–18; TEMP 36.2–36.7; O2SAT 92–99
--- NOTE | 2021-12-18 | SCC_ITS ---
Post-op findings: 1. Cystoscopy with left ureteral stent exchange 2. Left ureterorenoscopy with laser lithotripsy 63.9 seconds of fluoroscopic guidance, for a cumulative dose of 19.4 mGy, was provided to Dr. Batista by the radiology department. C-arm images of the abdomen were saved for the patient's permanent record. [facility]
--- NOTE | 2021-12-18 06:43 | XR_ITS ---
WS: [id number] ABDOMEN KUB CLINICAL INFORMATION: Renal/ureteral calculi. COMPARISON: November 29, 2021 FINDINGS: LEFT double-J ureteral stent. Stable cluster of stones in the mid LEFT ureter adjacent to the stent.T hese are unchanged since November 29, 2021. Stable clustered RIGHT renal parenchymal calculi. Improved calculus burden LEFT renal parenchyma. XR/XR KUB [id number] Impression: 1. Stable LEFT double-J ureteral stent. 2. Stable cluster of calcifications mid LEFT ureter at the L3-L4 level unchang ed. 3. Cluster of calcifications in the lower pole LEFT kidney has improved. 4. Stable cluster calcifications RIGHT kidney.
--- NOTE | 2021-12-18 06:43 | SC_ITS ---
WS: [id number] C-arm fluoroscopy for ureteral stent placement, 12/18/2021 Clinical Data: Left ureteral stones Comparison: None. Findings: Dr. Batista placed a left ureteral stent. SC/C-arm FL for Urology Impression: Left ureteral stent placement.
[2021-12-18] MEDS: sodium chloride 0.9% 1,000 ML 30 ML IV (07:35)
--- NOTE | 2021-12-18 07:48 | ANES.PREANE2 ---
Pre-Anesthetic Assessment Height/Weight: Height 1.88 m Weight 110.223 kg Temp Pulse Resp BP Pulse Ox 97.1 F L 96 16 142/107 95 12/18/21 06:56 12/18/21 06:56 12/18/21 06:56 12/18/21 06:56 12/18/21 06:56 Preop Diagnosis: Left ureteral and renal stone fragments Operation Date: 12/18/21 08:00 Proposed Procedures p cystoscopy 76903/n20.9(Not Applicable) - Alex Batista MD s Ureteroscopy(Left) - Alex Batista MD s Ureteral Stent Exchange(Left) - Alex Batista MD s Laser Lithotripsy(Left) - Alex Batista MD Familial anesthetic complications: None Was Beta Abram taken within 24 hours: Yes Was Clonidine taken within 24 hours: N/A Last intake: Intake Last Liquid Date 12/17/21 Last Liquid Time 15:00 Last Solid Date 12/17/21 Last Solid Time 15:00 Social Tobacco and No alcohol Exam alert, oriented x 3, clear to auscultation bilaterally and regular rate & rhythm Airway Submandibular: within normal limits Cervical ROM: within normal limits Mallampati: Class II Dentition: chipped Comments: Comments: Crowns Pulmonary Sleep Apnea CV/HEM Hypertension URETERAL STENT UROLITHIASIS Hepatic None reported Metabolic None reported Neuropsych Bipolar Anesthetic Plan ASA status: 2 Anesthesia: Anesthesia Evaluation and General Other: We discussed risk and benefits of general anesthesia including PONV, sore throat (sometimes severe), corneal abrasion, positioning and peripheral nerve injuries, life threatening allergic reaction, post operative ICU admission requiring prolonged intubation, stroke, heart attack, , and rare incidences of recall. Patient consents to proceed with general anesthesia. Risk of > 500 ml blood loss (7ml/kg in children): No Medications/Allergies Home Medications Medication Instructions Recorded Confirmed Last Taken Type gabapentin 800 mg tablet 800 mg PO TID 02/03/20 12/18/21 12/17/21 History hydrochlorothiazide 12.5 mg tablet 12.5 mg PO DAILY 08/02/20 12/18/21 12/17/21 History loratadine 10 mg tablet (Claritin) 10 mg PO DAILY 08/02/20 12/18/21 12/17/21 History omeprazole 20 mg tablet,delayed 20 mg PO DAILY 1012/18/21 12/17/21 History release ondansetron HCl 4 mg tablet 4 mg PO Q8H 09/04/21 12/17/21 09/20/21 History metoprolol succinate 25 mg capsule 25 mg PO DAILY 09/06/21 12/18/21 12/17/21 History sprinkle, ext. release 24 hr allopurinol 300 mg tablet 300 mg PO DAILY #90 tab 10/18/21 12/18/21 12/17/21 Rx carbamazepine 200 mg tablet 200 mg PO BID #60 tab 10/18/21 12/18/21 12/17/21 Rx (Tegretol) potassium citrate 10 mEq (1,080 10 meq PO BID #90 tab 10/18/21 12/18/21 12/17/21 Rx mg) tablet,extended release trazodone 50 mg tablet 100 mg PO .HS PRN #60 tab 10/18/21 12/18/21 12/17/21 Rx tamsulosin 0.4 mg capsule (Flomax) 0.4 mg PO DAILY #30 cap 11/05/21 12/18/21 12/17/21 Rx oxycodone-acetaminophen 5 mg-325 1 tab PO BID PRN 5 Days #10 tab 12/16/21 12/18/21 12/17/21 Rx mg tablet (Percocet) Allergies Allergy/AdvReac Type Severity Reaction Status Date / Time cephalexin [From Keflex] Allergy Unknown Verified 11/29/21 12:32 lisinopril Allergy Unknown Verified 11/29/21 12:32 Current Medications Generic Name Dose Route Start Last Admin Trade Name Freq PRN Reason Stop Dose Admin Sodium Chloride 1,000 mls @ 30 mls/hr 12/18/21 06:45 12/18/21 07:35 Sodium Chloride 0.9% IV 12/19/21 06:44 30 mls/hr .Q24H MAGDALENO Administration PFSH Anesthesia Medical History Bipolar II disorder Fracture of ulnar shaft, closed S/P extracorporeal shock wave therapy Urolithiasis Surgical History History of back surgery History of inguinal hernia repair History of loop recorder Hx of appendectomy S/P ureteral stent placement Family History Father Heart attack Social History Smoking and tobacco status: current some day smoker Alcohol intake: current Alcohol intake frequency: holidays/special occasions only Marital status: Single Current occupational status: disabled History of recent travel: No Data Anesthesia Cardiac Studies: No Data to Display
[2021-12-18 08:39] LABS: Anion Gap 14.7 (5-19); Blood Urea Nitrogen 11 mg/dL (6-20); Calcium 9.2 mg/dL (8.5-10.5); Carbon Dioxide 25 mmol/L (22-29); Chloride 101 mmol/L (98-107); Glomerular Filtration Rate 107.6 mL/min (90-130); Glucose 103 mg/dL (65-115); Osmolality Calculated 284 mOsm/kg (285-295); Potassium 3.7 mmol/L (3.5-5.1); Sodium 137 mmol/L (136-145)
[2021-12-18] MEDS: ipratropium 0.5 mg/2.5 mL Neb INHALATION (08:58)
--- NOTE | 2021-12-18 10:38 | P.HPUD_ITS ---
Surgery/Procedure H&P Update DATE OF PROCEDURE: December 18, 2021 DATE H&P PERFORMED: 11/29/21 H&P UPDATE INFORMATION: I have reviewed H&P completed within last 30 days, I have examined patient prior to procedure, Changes to prior documentation as noted here and H&P is in [facility] [place] on date indicated PREOP DIAGNOSIS: Left ureteral and renal stone fragments PRIMARY INDICATION FOR PROCEDURE: It appears that some of the renal fragments have dropped back down into the proximal ureter and he is cleared a few of the fragments from the distal ureter since last visit. No evidence of encrustation on the stent. We will proceed as planned with ureteroscopic laser lithotripsy of the ureteral fragments and if necessary flexible ureterorenoscopy for renal component. PLANNED PROCEDURE: Operation Date: 12/18/21 08:00 Proposed Procedures p cystoscopy 67725/n20.9(Not Applicable) - Alex Batista MD s Ureteroscopy(Left) - Alex Batista MD s Ureteral Stent Exchange(Left) - Alex Batista MD s Laser Lithotripsy(Left) - Alex Batista MD
[2021-12-18] MEDS: levofloxacin-dextrose 5 % 500 MG/100 ML PREMIX 100 MG IV (11:06)
[2021-12-18] MEDS: iohexol 300 mg/mL 50 mL Btl (OR ONLY) XX (11:19)
--- NOTE | 2021-12-18 12:25 | P.OP_ITS ---
Operative Report Date of procedure: December 18, 2021 Pre-op diagnosis: Preop Diagnosis Left ureteral and renal stone fragments Post-op diagnosis: Left ureteral and renal stone fragments Post-op findings: 1. Cystoscopy with left ureteral stent exchange 2. Left ureterorenoscopy with laser lithotripsy Implants: Left ureteral stent, 7 Mozambican by 30 cm double-pigtail without string Pathology: Stone fragments Surgeon: Lester Estimated blood loss: Less than 5 cc Urine output: Not measured Complications: None Findings: 1. Stones in the left ureter were easily identified and accessed with ureteroscopy. Completely fragmented. 2. 2 additional stones were identified in the collecting system of the left kidney/calyces/renal pelvis and were fragmented in addition to the ureteral stones. 3. Stent left indwelling Brief History: Dionicio is a very pleasant 41-year-old white male with a complex history of stones with some intermittent compliance issues related to medical therapy. He was recently diagnosed with 2 very large dense stones. He was offered percutaneous nephrostolithotomy versus combination of ESWL/endoscopic treatment. He elected the latter. He has been treated multiple times so far with ESWL and for the most part his stone burden has been reduced dramatically and he has approximately 10-15 remaining fragments along the stent with a couple stone fragments up in the kidney. We elected endoscopic treatment to try to completely clear via laser lithotripsy. He is admitted now for that procedure Procedure: After routine preoperative evaluation examination and obtaining of informed consent he was taken to the operating suite on 12/18/2021 where general anesthesia was administered without difficulty after appropriate timeout was performed, SCDs confirmed to be functioning, preoperative antibiotics administered, beta-saravanan protocol confirmed. Prepped and draped in usual sterile fashion in dorsolithotomy position paying careful attention to avoiding pressure points. 21 Mozambican cystoscope with 30 degree lens was introduced into the urethra meatus and advanced into the bladder under videoscopy. Flexible tip guidewire was easily advanced up the left ureter next to the stent curling in the upper pole calyceal area. Stent was then grasped with grasping forceps and withdrawn without difficulty with fluoroscopic confirmation of easy uncurling of the proximal end. A second guidewire was then passed without difficulty. The first wire was secured to the drapes as a safety wire. The second wire was used as a working wire. 24 cm ureteral access sheath was advanced over the working wire without difficulty to a couple inches below the stone cluster and along the ureter. An offset semirigid ureteroscope was utilized for treatment of the stones. The stones were identified and a 365 ?m thulium superpulse laser fiber was utilized to fragment the stones one by one moving proximally. This was a tedious process but accomplished well. The residual fragments were mostly sand and quite a bit flushed through the sheath. The ureter was confirmed to be clear of any significant stone fragments. Based on his preop KUB showing a couple stone still remaining in the kidney the rigid ureteroscope was then exchanged with a flexible ureteroscope which was advanced easily up the left ureter confirming no residual significant stone fragments and inspection was conducted in the kidney. 2 stones were identified and fragmented into sand with the same laser fiber. Final inspection revealed no additional stones. Fluoroscopic assessment of the kidney is well showed no additional stones. The hub was backloaded onto the scope and the scope was withdrawn. The ureter was mildly traumatized and for that reason the stent was left indwelling but there was nothing significant about the ureter at that was concerning. The scope was removed. The cystoscope was then backloaded over the safety wire and a 7 Mozambican by 30 cm double-pigtail stent was advanced over the guidewire through the cystoscope into appropriate position as confirmed via fluoroscopy and cystoscopy. Stent was confirmed to be draining. Bladder drained of some particulate sand and and the procedure was completed. He tolerated procedure well without complications and was awakened in the operating room and returned to the recovery room in stable condition. PLANS: 1. Anticipate discharge from outpatient surgery 2. Follow-up early next week with KUB. Cystoscopy with stent removal anticipated.
--- NOTE | 2021-12-18 15:42 | ANE.PACU2 ---
Inpatient post-anesthesia follow up: Airway intact: Yes Vital signs: Temperature 98.1 F Pulse Rate 98 Respiratory Rate 16 Blood Pressure 162/112 Pulse Oximetry 92 Oxygen Delivery Me thod Room Air Oxygen Flow Rate 6 Fraction of Inspir ed Oxygen Hydration adequate: Yes Nausea and vomiting: No Pain level: 1 Mental status: Baseline
== END 2021-12-18 13:36 | disposition home or self-care (01) ==
PROVIDERS: Anesthesiology; PCP Family Medicine; Visit Provider Urology
PROC: 0TJB8ZZ Inspection of Bladder, Via Natural or Artificial Opening Endoscopic (ICD-10-PCS; CPT 52000; principal; 2021-12-18 08:00)
PROC: 0TJ98ZZ Inspection of Ureter, Via Natural or Artificial Opening Endoscopic (ICD-10-PCS; CPT 52351; 2021-12-18 08:00)
PROC: (CPT 52356; 2021-12-18 08:00)
PROC: (CPT 52356; 2021-12-18 08:00)
DX: N20.2 Calculus of kidney with calculus of ureter (principal); G47.30 Sleep apnea, unspecified; I10 Essential (primary) hypertension; F17.210 Nicotine dependence, cigarettes, uncomplicated
CPT/HCPCS: 52356; 36415; 74018; 76000; 80048; 82365; 88300; 94640; C2625; J1100; J1956; J2405; J2704; J2710; J3010; J3490; J7030; J7611; J7644

== ENCOUNTER 2021-12-23 15:23 | Outpatient (CLI) | payer MEDICARE, SELFPAY ==
--- NOTE | 2021-12-23 15:00 | XR_ITS ---
WS: [id number] ABDOMEN: SUPINE FILM HISTORY: stones COMPARISON: 12/18/2021 Normal bowel gas pattern. Right kidney: Multiple calcifications overlie the RIGHT kidney. Largest calcification measures 12 x 9 mm. No ureteral calcification. Left kidney: LEFT ureteral double pigtail stent. 2 adjacent calcifications in the distal LEFT ureter adjacent to the stent. Calcifications extend over a length of 10 mm. Calcifications were also present on the prior study. The calcific burden along the stent has improved. There is still additional smal l calcifications scattered in the mid kidney. 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 XR/XR KUB [id number] IMPRESSION: 1. LEFT ureteral double J stent remains in good position. 2. Calcific burden along the LEFT stent have significantly improved. There are 2 adjacent calcifications now in the distal LEFT ureter. 3. Bilateral calcific burden over each kidney is otherwise unchanged.
== END 2021-12-23 15:24 | disposition home or self-care (01) ==
PROVIDERS: PCP Family Medicine; Visit Provider Urology
DX: Z96.0 Presence of urogenital implants (principal); N20.0 Calculus of kidney
CPT/HCPCS: 74018; 81003

== ENCOUNTER → 2022-01-10 13:37 | Outpatient (BNVA) | payer MEDICARE, SELFPAY | PROVIDERS: PCP Family Medicine; Visit Provider Nurse Practitioner | DX: F31.81 Bipolar II disorder (principal) | CPT/HCPCS: 99214 ==

== ENCOUNTER 2022-02-07 10:29 | Outpatient (CLI) | payer MEDICARE, SELFPAY ==
--- NOTE | 2022-02-07 10:00 | XR_ITS ---
WS: [id number] XR KUB [id number] REASON FOR EXAM: UROLITHIASIS FINDINGS: Multiple clusters of right renal calculi unchanged compared to previous examination of 12/23/2021. Compared to the previous examination of 12/23/2021 the left ureteral stent has been removed. No left i ntrarenal calculi or left ureteral calculi are identified. No calculi overlying the bladder are identified. XR/XR KUB [id number] IMPRESSION: Right renal calculi. Removal of left ureteral stent with no left renal or left ureteral calculus becca ntified.
== END 2022-02-07 10:30 | disposition home or self-care (01) ==
PROVIDERS: PCP Family Medicine; Visit Provider Urology
DX: N20.0 Calculus of kidney (principal)
CPT/HCPCS: 74018; 81003

== ENCOUNTER → 2022-04-04 13:29 | Outpatient (BNVA) | payer MEDICARE, SELFPAY | PROVIDERS: PCP Family Medicine; Visit Provider Nurse Practitioner | DX: F31.81 Bipolar II disorder (principal) | CPT/HCPCS: 99214 ==

== ENCOUNTER 2022-06-03 13:02 | Outpatient (CLI) | payer MEDICARE, SELFPAY ==
--- NOTE | 2022-06-03 12:30 | XR_ITS ---
WS: [id number] KUB, AP view, 06/03/2022 Clinical Data: UROLITHIASIS Comparison: KUB, 02/07/2022. Findings: There are numerous calcifications overlying the right kidney. There may be calcifications now overlyi ng the left kidney. Both kidneys are obscured by fecal material and bowel gas. The true pelvis shows no calcifications. Degenerative change of the lumbar spine is moderate. XR/XR KUB [id number] Impression: 1. No change in right renal calcifications. 2. Possible left renal calcifications.
== END 2022-06-03 13:03 | disposition home or self-care (01) ==
PROVIDERS: PCP Family Medicine; Visit Provider Urology
DX: N20.9 Urinary calculus, unspecified (principal)
CPT/HCPCS: 74018; 81003; 99213